=== PATIENT | male | born 1990 | race Caucasian/White ===

== ENCOUNTER 2017-02-07 06:53 | Day surgery (SDC) | payer BC ==
[~2017-02-07] VITALS: Ht 180.3 cm; Wt 102.1 kg
--- NOTE | ~2017-02-07 | H ---
[facility] [place] [address] HISTORY AND PHYSICAL Name: BAY MCCOY Room #: 150-15 [facility] M..#: [id number] Admission: 02/07/17 Attend Phys: Franki Linda MD Discharge: Date of : 86 Report #: [id number] THIS REPORT FOR: //name// CC: Franki Tay DATE OF SERVICE: 02/07/2017 PREOPERATIVE DIAGNOSIS: Symptomatic left inguinal hernia. HISTORY OF PRESENT ILLNESS: The patient is a 26-year-old who is here for repair of a right inguinal hernia. The patient had a right inguinal hernia performed in December 2015. Recently, he has noticed symptom on the left side. Feels just like the right side. Had an episode of sharp pain. He feels something pushing through. He noticed the symptom when he was bending over. Bowels are working well. No difficulty urinating. The patient does heavy work. No chronic cough or sneezing. He was found to have a left inguinal hernia, here for repair. PAST MEDICAL HISTORY: He is healthy. No heart disease, diabetes, high blood pressure, lung disease, kidney disease, liver disease, bleeding disorder or blood clot history. PAST SURGICAL HISTORY: Tonsillectomy in 1993, hernia repair in 2015. Medications: He is not on any medication. ALLERGIES: CECLOR. FAMILY HISTORY: Cancer, heart disease, diabetes. SOCIAL HISTORY: The patient works in [employer]. He smokes half a pack a day 4-5 drinks a week. REVIEW OF SYSTEMS: Unremarkable. No headache, chest pain, shortness of breath, blurred vision, weakness, numbness. PHYSICAL EXAMINATION: GENERAL: He is a well-nourished male in no acute distress. HEENT: Pupils react to light. Extraocular muscles are intact. Oropharynx clear. NECK: Soft and supple, no masses. LUNGS: Clear to auscultation. HEART: Regular rate and rhythm. No murmur or gallop. ABDOMEN: Soft and nondistended. No mass, guarding, rigidity or rebound. He does have a left inguinal hernia on exam. GENITOURINARY: Testicles are normal descended. [facility] [address] [place] [address] HISTORY AND PHYSICAL Name: BAY MCCOY Room #: 150-15 [facility]..#: [id number] Admission: 02/07/17 Attend Phys: Franki Linda MD Discharge: Date of : 86 Report #: [id number] EXTREMITIES: No cyanosis, clubbing or edema. IMPRESSION AND PLAN: The patient with symptomatic left inguinal hernia, he is here for repair. Laparoscopic approach is recommended. The patient understands the procedure since he had one a year ago and wishes to proceed. Risk of bleeding, infection, mesh infection and hernia recurrence were discussed. By: [id number] Franki Linda MD /nt
--- NOTE | ~2017-02-07 | O ---
[facility] [place] [address] [place] [address] OPERATIVE REPORT Name: BAY MCCOY Room #: 150-15 [facility] M.R.#: [id number] Admission: 02/07/17 Attend Phys: Franki Linda MD Discharge: Date of : 86 Report #: [id number] THIS REPORT FOR: //name// CC: Franki Tay DATE OF SERVICE: 02/07/2017 PREOPERATIVE DIAGNOSIS: Symptomatic left inguinal hernia. POSTOPERATIVE DIAGNOSIS: Symptomatic left indirect inguinal hernia. PROCEDURES PERFORMED: Laparoscopic properitoneal repair of left inguinal hernia with mesh. ANESTHESIA: General. SURGEON: Franki Linda M.D. COMPLICATIONS: None. ESTIMATED BLOOD LOSS: 5 mL. PROCEDURE NOTE: With the patient under general anesthesia, a Guzman catheter was placed, IV antibiotic was administered. Abdomen was prepped and draped in sterile fashion. Timeout was performed. A 0.25% Marcaine was used to anesthetize the skin and the subcutaneous tissue adjacent to the umbilicus on the left side. Transverse incision was made on the left side measuring about 2 cm. The fascia was identified. The fascia was then incised transversely. The anterior rectus sheath was opened. The muscle was spread. The posterior sheath was then palpated. The space between the muscle and the posterior sheath was bluntly dissected. Origin balloon trocar was placed. CO2 was placed. Under visualization, a 5 mm trocar was placed in the properitoneal space. Cautery and blunt dissection was then used to open up the rest of the properitoneal space. A second 5 mm trocar was placed about an inch and a half below the first one at the midline. Dissection was carried out. There was no direct defect. The dissection was carried to the midline where the other mesh from the other side was identified. The dissection was carried laterally. The inferior epigastric vessel was identified on the left side. The wall was freed on the left side. Some of the peritoneum that adhesed were pulled down. A little bit of air did travel into the peritoneal cavity. The peritoneal reflection was seen on the cord that was to the level of the internal ring. The peritoneal reflection was free from the underlying cord and then reduced and peeled down from the cord. In the cord, there was a cord lipoma. This was into the internal ring into the canal. This was reduced out of the canal. This was brought away from the cord in the properitoneal space. After this was performed, the internal ring was [facility] [address] [place] [address] OPERATIVE REPORT Name: BAY MCCYO Room #: 150-15 [facility] M.R.#: [id number] Admission: 02/07/17 Attend Phys: Franki Lidna MD Discharge: Date of : 86 Report #: [id number] identified and noted to be quite dilated. This was a same finding as its right side. One everything was cleaned off the cord, a large left-sided 3DMax lightweight mesh was placed. This was placed through the 11 mm trocar, opened in the properitoneal space. This was then seated properly. The mesh was tacked to the lateral wall with SorbaFix and Jesse's ligament and SorbaFix inferiorly, superiorly to the rectus muscle. The mesh opened up well. This covered the internal ring well and over the cord structure. CO2 was evacuated and trocars removed. At the cutdown site, the posterior sheath was grabbed, the peritoneum was opened. The CO2 was released from intraabdominal cavity. The posterior fascial layer was closed with a single [id number] 0 Vicryl. The anterior rectus sheath was closed with [id number] 0 Vicryl times 2. Skin was irrigated. Skin was closed with 5-0 PDS in a subcuticular fashion. Steri-Strip applied. Band-Aid used for dressing. The patient tolerated the procedure well and was taken to recovery. By: [id number] Franki Linda MD /nt
[~2017-02-07 06:53] MED LIST: EXCEDRIN MIGRA1 EAC1 PO; NORCO 5-325 TA1 EACH PO
[2017-02-07 12:54] VITALS: BP 136/78
[2017-02-07 15:44] VITALS: BP 136/78
== END 2017-02-07 16:00 | disposition home or self-care (01) ==
LOC: OR 06:53 → TBA 06:53 → OR 11:37
DX: K40.90 Unilateral inguinal hernia, without obstruction or gangrene, not specified as recurrent (principal); F17.210 Nicotine dependence, cigarettes, uncomplicated; G43.909 Migraine, unspecified, not intractable, without status migrainosus; Z98.890 Other specified postprocedural states; Z88.8 Allergy status to other drugs, medicaments and biological substances
CPT/HCPCS: 50010; 50101; 50411; 50507; 50555; 50848; 53065; 53307; 56525; 56526; 62110; 62900; 70005